=== PATIENT | female | born 1980 | race Caucasian/White ===

== ENCOUNTER 2016-09-14 21:40 | Inpatient (IN) | payer BC ==
[2016-09-14] MEDS ORDERED: Lidocaine 1% 30 ML SDV INJECT PRN (22:10)
[2016-09-14] MEDS ORDERED: Sodium Chloride 0.9% 10 ML Syringe FLUSH PRN (22:10)
[2016-09-14] MEDS ORDERED: Misoprostol 400 MCG (4 X 100 MCG TAB) RECTAL PRN (22:10)
[2016-09-14] MEDS ORDERED: Lactated Ringers 500 ML IV ONE (22:10)
[2016-09-14] MEDS ORDERED: Acetaminophen 325 MG Tab PO PRN (22:10)
[2016-09-14] MEDS ORDERED: Nalbuphine 10 MG/1 ML Vial IM PRN (22:10)
[2016-09-14] MEDS ORDERED: Methylergonovine 0.2 MG/1 ML Amp IM PRN (22:10)
[2016-09-14] MEDS ORDERED: Carboprost Tromethamine 250 MCG/1 ML Amp IM PRN (22:10)
[2016-09-14] MEDS ORDERED: Oxytocin/Normal Saline 30 UNIT/500 ML BAG IV SCH (22:15)
--- NOTE | 2016-09-14 22:18 | PCM.LDHP ---
<Nanda Avalos - Last Filed: 09/14/16 22:13> L&D History of Present Illness - General Date of Service: 09/14/16 Admit Problem/Dx: Patient Status Order with Admit Dx/Problem 09/14/16 22:11 Patient Status [ADT] Routine Admission Diagnosis/Problem Admission Diagnosis/Problem Source of Information: Patient History Limitations: Reports: No limitations - History of Present Illness Introduction:: Susana is a delightful 36 year old with a working gestation age of 38w 1d. She Presents today status post gross rupture of membranes at approximately 2130. She is having contractions approximately every 4 minutes. She is currently not really noticing the contractions. Timing/Duration: Reports: seconds: (6) Location, : Reports: Uterus Severity: mild Pain Score: 2 Associated Symptoms: Reports: vaginal fluid, moderate amount. Denies: vaginal bleeding, vaginal clots - Related Data Allergies/Adverse Reactions: Allergies Allergy/AdvReac Type Severity Reaction Status Date / Time No Known Allergies Allergy Verified 06/01/16 02:32 Home Medications: Home Meds Vit No.129/Iron/FA [ Tablet] 1 each PO DAILY 06/01/16 [History] Fluticasone Propionate [Flonase] 1 spray NASBOTH DAILY 09/01/16 [History] Loratadine [Claritin] 10 mg PO DAILY 09/01/16 [History] Past Medical History Other HEENT History: h/o cold sores COMMUNICATIONS CLERK History: Reports: Spontaneous (x2) : 3 Para: 0 LMP (Approximate): - Infectious Disease History Infectious Disease History: Reports: Chicken pox - Past Surgical History Neurological Surgical History: Reports: Spinal fusion Social & Family History - Family History HEENT: Reports: Glaucoma (mgf) Cardiac: Reports: UT (mgf), Other (see below) (heart disease, - MGF 5 vessel cabg - father) Neurological: Reports: CVA (father) Endocrine/Metabolic: Reports: Diabetes, type II (father) Oncologic: Reports: Breast (cousin), Lung (PGM) Other Family History: Cousin with down syndrome - Tobacco Use Smoking Status *Q: Never Smoker - Alcohol Use Alcohol Use History: No - Recreational Drug Use Recreational Drug Use: No - Living Situation & Occupation Living situation: Reports: Occupation: employed Social History Comment: 11/19/15 Moved form [place] in February of 2015. October 19 2015. 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 No animals in home. Shaquille has 2 children and he works at [employer] H&P Review of Systems - Review of Systems: Review Of Systems: See Below General: Denies: fever, chills HEENT: Reports: no symptoms Pulmonary: Denies: Shortness of Breath, Wheezing, Cough Cardiovascular: Reports: edema (mild). Denies: chest pain, palpitations Gastrointestinal: Denies: Abdominal pain, Nausea, Vomiting Genitourinary: Denies: dysuria, frequency Musculoskeletal: Reports: no symptoms Skin: Reports: no symptoms Psychiatric: Reports: no symptoms Neurological: Reports: No Symptoms Hematologic/Lymphatic: Reports: no symptoms Immunologic: Reports: no symptoms L&D Exam - Exam Exam: See Below - Vital Signs Weight: 97.976 kg - OB Specific Contraction Duration (sec): 6 Contraction Frequency (min): 4min Contraction Intensity: Mild movement: active heart tones: present - Exam General: alert, oriented, cooperative HEENT: Conjunctiva clear, Hearing intact, Pupils equal Neck: supple Lungs: Clear to auscultation, Normal respiratory effort Cardiovascular: regular rate, regular rhythm Abdomen: normal bowel sounds, soft Rectal Exam: Deferred Genitourinary: Normal external exam, Cervical dilitation (1.5) Back Exam: normal inspection, full range of motion Extremities: normal inspection, edema (trace) Skin: warm, dry, intact Psychiatric: alert, normal affect, normal mood - Problem List (1) SNOMED Code(s): 70216805 ICD Code: Z33.1 - STATE, INCIDENTAL Status: Acute Current Visit : Yes Qualifiers: Weeks of gestation: 38 weeks Qualified Code(s): Z3A.38 - 38 weeks gestation of (2) Spontaneous rupture of amniotic membranes SNOMED Code(s): 567432321 ICD Code: [id number] - Status: Acute Current Visit: Yes (3) Advanced maternal age (AMA) in SNOMED Code(s): 030063405 ICD Code: [id number] - Status: Acute Current Visit: Yes (4) Rubella immune SNOMED Code(s): 699826257 ICD Code: Z78.9 - OTHER SPECIFIED HEALTH STATUS Status: Acute Current Visit: Yes (5) Abnormal glucose tolerance in Status: Acute Current Visit: Yes (6) Previous SNOMED Code(s): 783021792 ICD Code: Z87.59 - PERSONAL HISTORY OF COMP OF PREG, CHLDBRTH AND THE PUERP Status: Acute Current Visit: Yes Problem List Initiated/Reviewed/Updated: Yes Orders Last 24hrs: Active Orders 24 hr Category Date Time Status Patient Status [ADT] Routine ADT 09/14/16 22:11 Ordered Communication Order [RC] ASDIRECTED Care 09/14/16 22:11 Ordered Heart Tones [RC] PER UNIT ROUTINE Care 09/14/16 22:11 Ordered Notify Provider Vital Signs OB [RC] ASDIRECTED Care 09/14/16 22:11 Ordered Notify Provider [RC] PRN Care 09/14/16 22:11 Ordered Pump Management, Intrathecal [RC] ASDIRECTED Care 09/14/16 22:12 Ordered Up ad Lisy [RC] ASDIRECTED Care 09/14/16 22:11 Ordered Vital Signs [RC] PER UNIT ROUTINE Care 09/14/16 22:11 Ordered CBC W/O DIFF,HEMOGRAM [HEME] Routine Lab 09/14/16 22:11 Ordered Acetaminophen [Tylenol] Med 09/14/16 22:10 Ordered 650 mg PO Q4H PRN Carboprost Tromethamine [Hemabate DS] Med 09/14/16 22:10 Ordered 250 mcg IM ASDIRECTED PRN Lactated Ringers @ 125 MLS/HR(1000ml) Med 09/14/16 22:15 Ordered Lactated Ringers [Ringers, Lactated] 1,000 ml IV ASDIRECTED Lactated Ringers [Ringers, Lactated] 500 ml Med 09/14/16 22:10 Ordered IV .BOLUS Lidocaine 1% [Xylocaine-MPF 1%] Med 09/14/16 22:10 Ordered 10 ml INJECT ASDIRECTED PRN Methylergonovine [Methergine] Med 09/14/16 22:10 Ordered 0.2 mg IM ASDIRECTED PRN Misoprostol [Cytotec] Med 09/14/16 22:10 Ordered 800 mcg RECTAL ASDIRECTED PRN Nalbuphine [Nubain] Med 09/14/16 22:10 Ordered 20 mg IM ONETIME PRN Ondansetron [Zofran] Med 09/14/16 22:10 Ordered 4 mg IV Q4H PRN Sodium Chloride 0.9% [Saline Flush] Med 09/14/16 22:10 Ordered 10 ml FLUSH ASDIRECTED PRN fentaNYL [Sublimaze] Med 09/14/16 22:10 Ordered 75 mcg IVPUSH Q1H PRN Saline Lock Insert [OM.PC] Routine Oth 09/14/16 22:11 Ordered Resuscitation Status Routine Resus Stat 09/14/16 22:10 Ordered Assessment/Plan Comment:: Assessment: at 38 and 1. O+ GBS - Rubella immune Syphilis and HIV negative HBsAg nonreactive Gonorrhea/chlamydia negative abnormal glucose tolerance test during - 1 hour screen 143. 3 hour screen 90, 148, 132, 107 Advanced maternal age H/o Previous abortions PLAN 1. Begin labor cares per unit protocol 2. Hemogram 3. Pain management as needed 4. continue to monitor contractions will start pit if not adequate. <Jenna Cruz - Last Filed: 09/15/16 04:10> L&D History of Present Illness - General Admit Problem/Dx: Patient Status Order with Admit Dx/Problem 09/14/16 22:11 Patient Status [ADT] Routine Admission Diagnosis/Problem Admission Diagnosis/Problem L&D Exam - Vital Signs Vital Signs: Last Vital Signs Temp 98.1 F 09/14/16 21:48 Pulse 79 09/14/16 22:30 Resp 16 09/14/16 22:30 BP 122/83 09/14/16 22:30 Pulse Ox - Patient Data Lab Results last 24 hrs: Laboratory Results - last 24 hr 09/14/16 Range/Units 22:25 WBC 8.3 (5.0-10.0) 10^3/uL RBC 4.14 L (4.2-5.4) 10^6/uL Hgb 12.4 (12.0-16.0) g/dL Hct 36.3 L (37.0-47.0) % MCV 87.7 (80-100) fL MCH 30.0 (27.0-34.0) pg MCHC 34.2 (33.0-35.0) g/dL Plt Count 198 (150-450) 10^3/uL Result Diagrams: 09/14/16 22:25 Orders Last 24hrs: Active Orders 24 hr Category Date Time Status Patient Status [ADT] Routine ADT 09/14/16 22:11 Active Communication Order [RC] ASDIRECTED Care 09/14/16 22:11 Active Heart Tones [RC] PER UNIT ROUTINE Care 09/14/16 22:11 Active Notify Provider Vital Signs OB [RC] ASDIRECTED Care 09/14/16 22:11 Active Notify Provider [RC] PRN Care 09/14/16 22:11 Active Pump Management, Intrathecal [RC] ASDIRECTED Care 09/14/16 22:12 Active Up ad Lisy [RC] ASDIRECTED Care 09/14/16 22:11 Active Vital Signs [RC] PER UNIT ROUTINE Care 09/14/16 22:11 Active Acetaminophen [Tylenol] Med 09/14/16 22:10 Active 650 mg PO Q4H PRN Carboprost Tromethamine [Hemabate DS] Med 09/14/16 22:10 Active 250 mcg IM ASDIRECTED PRN Lactated Ringers [Ringers, Lactated] 1,000 ml Med 09/14/16 22:15 Active IV ASDIRECTED Lidocaine 1% [Xylocaine-MPF 1%] Med 09/14/16 22:10 Active 10 ml INJECT ASDIRECTED PRN Methylergonovine [Methergine] Med 09/14/16 22:10 Active 0.2 mg IM ASDIRECTED PRN Misoprostol [Cytotec] Med 09/14/16 22:10 Active 800 mcg RECTAL ASDIRECTED PRN Nalbuphine [Nubain] Med 09/14/16 22:10 Active 20 mg IM ONETIME PRN Ondansetron [Zofran] Med 09/14/16 22:10 Active 4 mg IV Q4H PRN Oxytocin/Normal Saline [Pitocin in NS 30 UNIT/500 ML] Med 09/14/16 22:15 Active 30 unit in 500 ml IV TITRATE Sodium Chloride 0.9% [Saline Flush] Med 09/14/16 22:10 Active 10 ml FLUSH ASDIRECTED PRN fentaNYL [Sublimaze] Med 09/14/16 22:10 Active 75 mcg IVPUSH Q1H PRN Saline Lock Insert [OM.PC] Routine Oth 09/14/16 22:11 Ordered Resuscitation Status Routine Resus Stat 09/14/16 22:10 Ordered Medication Orders Acetaminophen (Tylenol) 650 mg PO Q4H PRN PRN Reason: Pain (Mild 1-3) and fever Carboprost Tromethamine (Hemabate Ds) 250 mcg IM ASDIRECTED PRN PRN Reason: HEMORRHAGE Fentanyl (Sublimaze) 75 mcg IVPUSH Q1H PRN PRN Reason: Pain (moderate 4-6) Lactated Ringer's (Ringers, Lactated) 1,000 mls @ 125 mls/hr IV ASDIRECTED MARIAN Oxytocin/Sodium Chloride (Pitocin In Ns 30 Unit/500 Ml) 30 unit in 500 mls @ 2 mls/hr IV TITRATE MARIAN; 2 MUNITS/MIN PRN Reason: Protocol Lidocaine HCl (Xylocaine-Mpf 1%) 10 ml INJECT ASDIRECTED PRN PRN Reason: Perineal Repair Methylergonovine Maleate (Methergine) 0.2 mg IM ASDIRECTED PRN PRN Reason: Hemorrhage Misoprostol (Cytotec) 800 mcg RECTAL ASDIRECTED PRN PRN Reason: Hemorrhage Nalbuphine HCl (Nubain) 20 mg IM ONETIME PRN PRN Reason: Abdominal Pain Ondansetron HCl (Zofran) 4 mg IV Q4H PRN PRN Reason: Nausea/Vomiting Sodium Chloride (Saline Flush) 10 ml FLUSH ASDIRECTED PRN PRN Reason: Keep Vein Open Assessment/Plan Comment:: Patient seen and examined. Agree with note per Nanda Avalos, MS3 scribed on my behalf. Also see [facility] clinic notes. -onsite case manager 09/15/16 0410.
[2016-09-14] MEDS: Lactated Ringers 1,000 ML IV SCH (23:55)
[2016-09-15] MEDS: Lactated Ringers 1,000 ML IV SCH ×6 (04:37→18:13)
--- NOTE | 2016-09-15 05:56 | PN ---
DATE: 09/15/2016 SUBJECTIVE: The patient is doing well, noticing increased force of her contractions and tolerating them well. Continues to have good movement. No vaginal bleeding. Continues to leak clear fluid. Reports anxiety and being nervous about if the baby is doing okay or not since the nurses needed to call me in for evaluation of the monitoring strip and they have already applied oxygen and decreased the rate of the Pitocin. OBJECTIVE: Vital Signs: Have been stable. She has had some borderline pressures, when I was called in was 136/80, with a pulse of 80, heart tones 130 beats per minute at baseline. Moderate [id number] variability. Accelerations are noted. Prior to my arrival, she was having recurrent early decelerations down into the 80s and 90s and nursing staff wanted me to evaluate because they were in early position with excellent variability and reassuring tracing in between, but due to the degree of heart rate decrease, they felt it was best that I reassess. Cervical: 3 cm, 75%, -1 station. Pitocin is currently at 4. As I was here, monitored her after vaginal exam. She continued to have contractions about every 2-1/2 minutes and the heart tracing reassuring in category I. After a period of time, she did have return of the early decelerations and some with more variable features. We have continued to watch over period time and they are frequently more variable than early. She has also had 1 late deceleration, which recovered spontaneously and these are not recurrent. ASSESSMENT: 1. A 38-2/7th weeks' intrauterine . 2. Premature rupture of membranes, being augmented with Pitocin. 3. Advanced maternal age. 4. History of miscarriage x2. 5. Other diagnoses as per her history and physical. PLAN: Continue to watch closely at this time. We will increase Pitocin as we are able and hopefully she will be able to get into a regular effective labor pattern, we can proceed with vaginal delivery. I did discuss with her and her reasons for proceeding with section as well as how the procedure would be performed and a full discussion with her about the risks, alternatives, and benefits and their questions were answered. Formal consent discussion will be documented in the operative report should we need to proceed to . [facility] /[id number]
[2016-09-15] MEDS: fentaNYL 100 MCG/2 ML SDV IVPUSH PRN ×2 (06:50→10:21)
[2016-09-15] MEDS: Ondansetron 4 MG/2 ML SDV IV PRN ×2 (12:39→17:56)
[2016-09-15] MEDS ORDERED: fentaNYL 100 MCG/2 ML SDV ITHECAL ONE ×2 (12:53→18:23)
--- NOTE | 2016-09-15 13:25 | PCM.PREANE ---
Preanesthetic Assessment - Procedure Proposed Procedure: Intrathecal Narcotic for labor pain - Anesthesia/Transfusion/Family Hx Anesthesia History: Prior Anesthesia Without Reaction Family History of Anesthesia Reaction: No Transfusion History: No Prior Transfusion(s) Intubation History: Unknown - Review of Systems General: No Symptoms Pulmonary: No Symptoms Cardiovascular: No Symptoms Gastrointestinal: No symptoms Neurological: No Symptoms Other: Reports: None - Physical Assessment NPO Status Date: 09/15/16 NPO Status Time: 08:00 Pulse: 67 O2 Sat by Pulse Oximetry: 100 Respiratory Rate: 16 Blood Pressure: 104/54 Temperature: 36.6 C Vital Signs: Last Vital Signs Temp 36.3 C 09/15/16 12:16 Pulse 69 09/15/16 10:54 Resp 16 09/15/16 10:38 BP 150/73 H 09/15/16 10:54 Pulse Ox 100 09/15/16 10:54 Height: 1.6 m Weight: 97.976 kg ASA Class: 2 Mental Status: Alert & Oriented x3 Airway Class: Mallampati = 2 Dentition: Reports: Normal Dentition ROM/Head Extension: Full Lungs: Clear to auscultation, Normal respiratory effort Cardiovascular: Regular Rate, Regular Rhythm - Lab Values: Laboratory Last Values WBC 8.3 10^3/uL (5.0-10.0) 09/14/16 22:25 RBC 4.14 10^6/uL (4.2-5.4) L 09/14/16 22:25 Hgb 12.4 g/dL (12.0-16.0) 09/14/16 22:25 Hct 36.3 % (37.0-47.0) L 09/14/16 22:25 MCV 87.7 fL (80-100) 09/14/16 22:25 MCH 30.0 pg (27.0-34.0) 09/14/16 22:25 MCHC 34.2 g/dL (33.0-35.0) 09/14/16 22:25 Plt Count 198 10^3/uL (150-450) 09/14/16 22:25 - Allergies Allergies/Adverse Reactions: Allergies Allergy/AdvReac Type Severity Reaction Status Date / Time No Known Allergies Allergy Verified 06/01/16 02:32 - Blood Product(s) Available: None - Anesthesia Plan Pre-Op Medication Ordered: None - Acknowledgements Anesthesia Type Planned: Spinal Pt an Appropriate Candidate for the Planned Anesthesia: Yes Alternatives and Risks of Anesthesia Discussed w Pt/Guardian: Yes Pt/Guardian Understands and Agrees with Anesthesia Plan: Yes PreAnesthesia Questionnaire Other HEENT History: h/o cold sores DEPOSIT REFUND CLERK History: Reports: Spontaneous (x2) Endocrine/Metabolic History: Reports: Other (see below) Other Endocrine/Metabolic History: watching for gestational DM- monitoring sugars - Infectious Disease History Infectious Disease History: Reports: Chicken pox - Past Surgical History Neurological Surgical History: Reports: Spinal fusion - SUBSTANCE USE Smoking Status *Q: Never Smoker Second Hand Smoke Exposure: No Recreational Drug Use History: No - HOME MEDS Home Medications: Home Meds Vit No.129/Iron/FA [ Tablet] 1 each PO DAILY 06/01/16 [History] Fluticasone Propionate [Flonase] 1 spray NASBOTH DAILY 09/01/16 [History] Loratadine [Claritin] 10 mg PO DAILY 09/01/16 [History] - CURRENT (IN HOUSE) MEDS Current Meds: Current Medications Acetaminophen (Tylenol) 650 mg PO Q4H PRN PRN Reason: Pain (Mild 1-3) and fever Carboprost Tromethamine (Hemabate Ds) 250 mcg IM ASDIRECTED PRN PRN Reason: HEMORRHAGE Fentanyl (Sublimaze) 75 mcg IVPUSH Q1H PRN PRN Reason: Pain (moderate 4-6) Last Admin: 09/15/16 10:21 Dose: 75 mcg Lactated Ringer's (Ringers, Lactated) 1,000 mls @ 125 mls/hr IV ASDIRECTED MARIAN Last Admin: 09/15/16 13:18 Dose: 125 mls/hr Oxytocin/Sodium Chloride (Pitocin In Ns 30 Unit/500 Ml) 30 unit in 500 mls @ 2 mls/hr IV TITRATE MARIAN; 2 MUNITS/MIN PRN Reason: Protocol Last Titration: 09/15/16 11:43 Dose: 7 munits/min, 7 mls/hr Lidocaine HCl (Xylocaine-Mpf 1%) 10 ml INJECT ASDIRECTED PRN PRN Reason: Perineal Repair Methylergonovine Maleate (Methergine) 0.2 mg IM ASDIRECTED PRN PRN Reason: Hemorrhage Misoprostol (Cytotec) 800 mcg RECTAL ASDIRECTED PRN PRN Reason: Hemorrhage Nalbuphine HCl (Nubain) 20 mg IM ONETIME PRN PRN Reason: Abdominal Pain Ondansetron HCl (Zofran) 4 mg IV Q4H PRN PRN Reason: Nausea/Vomiting Last Admin: 09/15/16 12:39 Dose: 4 mg Sodium Chloride (Saline Flush) 10 ml FLUSH ASDIRECTED PRN PRN Reason: Keep Vein Open Discontinued Medications Lactated Ringer's (Ringers, Lactated) 500 mls @ 999 mls/hr IV .BOLUS ONE Stop: 09/14/16 22:40
--- NOTE | 2016-09-15 13:27 | PCM.PRNOTE ---
- Free Text/Narrative Note: Chart Reviewed, Patient ID'd, Risk Benefit of spinal narcotic for labor pain is discussed and agreed to by patient. Consent signed. Preloaded with 1 liter of LR. Baseline VS is obtained. In sitting position L 3-4 inner space is id'd. Skin wheel and space infiltration with 1% lidocaine. 24 G pencan spinal needle is introduced into via 18 G introducer needle into SA space. No Paresthesia, No Blood, Positive CSF. 6 mg Hyperbaric Marcaine, 20 mcg sufentanyl, 30 mcg fentanyl, epinepherine wash and 1 ml preservative free normal saline injected after positive swirl of CSFx2. VSS Dermatone level is T8 Bilateral and immediate labor pain relieve reported by patient.
--- NOTE | 2016-09-15 18:12 | PCM.PRNOTE ---
- Free Text/Narrative Note: Patient is experiencing labor pain. The spinal effect is completely wore off and require a repeat spinal narcotic injection. The contractions are more frequent now. Consent signed. Preloaded with 1 liter of LR. Baseline VS is obtained. In sitting position L 3-4 inner space is id'd. Skin wheel and space infiltration with 1% lidocaine. 24 G pencan spinal needle is introduced into via 18 G introducer needle into SA space. No Paresthesia, No Blood, Positive CSF. 6 mg Hyperbaric Marcaine, 20 mcg sufentanyl, 30 mcg fentanyl, epinepherine wash and 1 ml preservative free normal saline injected after positive swirl of CSFx2. VSS Dermatone level is T8 Bilateral and immediate labor pain relieve reported by patient.
[2016-09-15] MEDS ORDERED: fentaNYL 100 MCG/2 ML SDV ONE (18:22)
[2016-09-15] MEDS ORDERED: Oxytocin/Normal Saline 60 UNIT/1,000 ML BAG ONE (19:56)
[2016-09-15] MEDS ORDERED: Citric Acid/Sodium Citrate Solution 30 ML Cup PO ONE ×2 (19:57→21:52)
[2016-09-15] MEDS ORDERED: ceFAZolin 2 GM in Premix Bag 1 BAG IV ONE ×2 (20:30→21:52)
[2016-09-15] MEDS ORDERED: Oxytocin/Normal Saline 30 UNIT/500 ML BAG IV SCH (21:00)
[2016-09-15] MEDS ORDERED: Ketorolac 30 MG/ML SDV IVPUSH ONE (21:00)
--- NOTE | 2016-09-15 22:20 | PN ---
DATE: 09/15/2016 SUBJECTIVE: The patient is comfortable now that she has had a second intrathecal, admits that she has increasing irritability and generalized fatigue from having been in labor so long and increasingly frustrated with the fact that she is not progressing quicker. She is also complaining of nausea especially any time that she lays flat at this time. She just feels ready to be done. OBJECTIVE: Vital Signs: Remained stable. Latest blood pressure 106/51, temperature of 69. Genitourinary: Cervix is 8 cm per nurse's exam. I was called in because when the Pitocin got up to 12 again, she had few lates, not recurrent in nature, but the strip looked more concerning. There were also a short periods of minimal variability. Upon arrival, baby had recovered quite nicely after stopping the Pitocin, and the patient being late on her left side. heart tones were tracing at 150 beats per minute at baseline with moderate beat-to- beat variability. Accelerations present. Contractions were starting to space out. I reexamined her cervix and it remains about 85% effaced and 7 cm dilated. Really no progress from last exam. Some increasing caput, but no other significant change, still continues to leak clear fluid. She remains afebrile and does not feel hot to touch. Psychologcal: She is essentially done and frustrated and just ready to deliver at this point. ASSESSMENT: 1. A 38 and 2/7th weeks' intrauterine . 2. Premature rupture of membranes, requiring induction of labor. 3. intolerance of labor. 4. Arrest of labor in stage I. 5. Heartburn. 6. Advanced maternal age. 7. History of abnormal glucose test at 1 hour, but normal 3 hour. 8. History of vertebral fracture with fusion of L5-S1. 9. She is blood type O positive, rubella immune, and group B strep negative. She is 3, para 0-0-2-0. PLAN: I discussed with the patient, her , and mother indications of section at this time. Previously had consent discussion with them knowing that the may become necessary. Reviewed risk of infection, bleeding, and injury to unintended organs and structures. Offered another opportunity for questions to be answered, and they denied having any and agreed to proceed. Appropriate consent forms were signed and can be found in the chart. We will proceed with section as soon as the team is ready and available. [facility] /[id number] [place]
[2016-09-15] MEDS ORDERED: diphenhydrAMINE 50 MG/ML SDV IVPUSH PRN (22:55)
[2016-09-15] MEDS ORDERED: Naloxone 2 MG/2 ML Syringe IVPUSH PRN (22:55)
[2016-09-15] MEDS ORDERED: Ondansetron 4 MG/2 ML SDV IV PRN (22:55)
[2016-09-15] MEDS ORDERED: ePHEDrine 50 MG/ML SDV IVPUSH PRN (22:55)
[2016-09-15] MEDS ORDERED: Lactated Ringers 1,000 ML IV SCH (23:00)
[2016-09-15] MEDS: Acetaminophen/oxyCODONE 325-5 MG Tab PO PRN (23:19)
[2016-09-16] MEDS: Ferrous Sulfate 325 MG Tab PO SCH ×2 (00:32→08:52)
--- NOTE | 2016-09-16 03:41 | OR ---
DATE: 09/15/2016 PREOPERATIVE DIAGNOSES: 1. A 38 and 2/7th weeks' intrauterine . 2. 3, para 0-0-2-0. 3. Premature rupture of membranes. 4. intolerance of labor. 5. Arrest of stage I at 7 cm dilated. 6. History of miscarriage x2. 7. Advanced maternal age. 8. Prior abnormal 1 hour glucose tolerance test and normal 3-hour test. 9. Heartburn of . 10.History of vertebral fracture with L5-S1 fusion. 11.Hemorrhoids. 12.Family history of heart attack. POSTPROCEDURE DIAGNOSES: 1. A 38 and 2/7th weeks intrauterine . 2. 3, para 0-0-2-0. 3. Premature rupture of membranes. 4. intolerance of labor. 5. Arrest of stage I at 7 cm dilated. 6. History of miscarriage x2. 7. Advanced maternal age. 8. Prior abnormal 1 hour glucose tolerance test and normal 3-hour test. 9. Heartburn of . 10.History of vertebral fracture with L5-S1 fusion. 11.Hemorrhoids. 12.Family history of heart attack. 13.Delivery of viable male infant with asynclitic molding noted likely the cause for arrest of stage I labor. PROCEDURE PERFORMED: Primary low transverse section. BRIEF HISTORY: The patient presented last night to the hospital after having spontaneous rupture of membranes about 9:30 at night and did not have rapid onset of contractions. Pitocin was ordered, but due to computer issues at the hospital, initiation of the Pitocin was delayed by about 4 hours. Off and on throughout the night and day, there has been intermittent category II and category I tracings, mostly remarkable for early decelerations, only occasional lates and lots of variables, not typically enough to call for section until right at the end. Please see progress notes and nursing notes for full details. The patient got no further than 7 cm dilated and about 85% effaced. Blood pressures had been maintained. She was not having any troubles with fever. The Pitocin was turned on and off a couple of different times because of mild intolerance. The patient had two intrathecals while in labor to help control her pain. After discussion of indications as outlined above, she did agree to proceed with surgery. CONSENT: Discussed with the patient, her , and mother, the indications risks, benefits, and alternatives of primary low transverse section including risk of infection and plan for preoperative antibiotics, risk of bleeding to the point of requiring a blood transfusion, as well as its inherent risk including possible contraction of blood-borne disease or new antibodies or transfusion reaction. Discussed potential injury to any internal organs and structures including, but not limited to, large blood vessels, nerves, veins, intestines, muscles, fallopian tubes, ovaries, uterus, bladder, any other adjacent structures, and even potential injury to the baby, possible complication for the mom or the baby requiring transfer to a tertiary center, remote risk of . Her questions were answered and she agreed to proceed. Appropriate consent forms were signed and are in the chart. DETAILS: The patient was brought down to the operating room and spinal anesthesia was obtained. She was laid in the dorsal supine position with leftward tilt, and Alatorre indwelling catheter was placed. Abdomen was prepped and draped in the usual fashion and skin incision was made in a Pfannenstiel location at 2051 hours and carried down to the underlying fascia with blunt finger dissection and limited cautery use. Fascia was then incised in the midline with cautery and extended bilaterally using blunt finger traction. Superior fascial edge was grasped with Bony's, tented up, and rectus muscles dissected off bluntly. Inferior fascial edge grasped, tented up, and rectus muscles dissected off bluntly and with cautery. The rectus muscles were noted to have a diastasis and the peritoneal cavity entered with blunt finger dissection. The intestine was readily protruding through the diastasis and Delmar O retractor was placed and then two lap sponges were used to hold the intestine out of the way. Uterus was inspected and bladder flap created using Metzenbaum scissors and DeBakey pickups. A low transverse uterine incision was made at 2056 hours and carried down sharply until just a thin layer was left. Ultimate uterine penetration was with finger and the hysterotomy site was created with Kaplan method. Infant's head was brought out of the pelvis and up through the hysterotomy site gently. With fundal pressure applied, infant's head was delivered followed easily thereafter by the shoulders. Baby's delivery time was 2057 hours. Infant's mouth and nose were bulb suctioned. Three-vessel umbilical cord was doubly clamped and cut and baby was taken to the warmer for further evaluation. Cord blood sample was then obtained and placenta delivered by manual extraction and gentle cord traction. Uterus was cleared of any clots and debris. The hysterotomy site bleeders were controlled with Jose and uterine closure was performed with a running lock stitch of 0 Vicryl in the usual fashion. Second layer was not necessary as the patient was hemostatic and declines plans for further pregnancies. Lap, sponges, and Delmar O retractor were removed. Pericolic gutters were cleared of any clots and debris. Hysterotomy site reinspected, remained hemostatic, and this layer was irrigated. The peritoneal layer was then closed with a running remnant stitch of 0 Vicryl with a fish being used to hold back the intestines. This layer was then irrigated, cleared of any clots and debris. The fascia closed with a running stitch of 0 looped PDS in the usual fashion. Subcutaneous layer was irrigated, cleared of clots and debris, and subcutaneous bleeders controlled with cautery. Skin was closed with a 3-0 Monocryl stitch on a Karlos needle and case ended at 2139 hours. The patient tolerated the procedure well. Sponge and instrument counts were correct x3. URINE OUTPUT: 100 mL, yellow. ESTIMATED BLOOD LOSS: 600 mL. IV FLUIDS: 1200 mL of crystalloids. FINDINGS: Viable male , scores of 9 and 9. weight 3615 g, 8 pounds 0 ounces, 20 inches long. Scalp remarkable for appearance of being asynclitic likely the cause for arrest of stage I. [facility] /[id number] [facility]
[2016-09-16] MEDS: Ketorolac 30 MG/ML SDV IVPUSH SCH ×3 (03:44→16:16)
[2016-09-16] MEDS: Acetaminophen/oxyCODONE 325-5 MG Tab PO PRN ×4 (05:46→21:02)
--- NOTE | 2016-09-16 07:13 | PCM.POSTAN ---
POST ANESTHESIA ASSESSMENT - MENTAL STATUS Mental Status: alert, oriented - VITAL SIGNS Pulse Rate: 88 SaO2: 99 Resp Rate: 20 Blood Pressure: 126/81 - RESPIRATORY Respiratory Status: respiratory rate WNL, airway patent, O2 saturation stable - CARDIOVASCULAR CV Status: pulse rate WNL, blood pressure stable - GASTROINTESTINAL GI Status: no symptoms - PAIN Pain Score: 0 - POST OP HYDRATION Hydration Status: adequate & stable - OBSERVATIONS Free Text/Narrative:: Fully recovered from spinal anesthesia sitting in bed had a good night. VSS.
[2016-09-16] MEDS: Prenatal Multivitamin with Calcium/Folic Acid/Iron Tab PO SCH (08:51)
[2016-09-16] MEDS: Simethicone 80 MG Tab.Chew PO PRN ×2 (08:52→21:03)
[2016-09-16] MEDS: Docusate Sodium 100 MG Cap PO PRN (08:52)
--- NOTE | 2016-09-16 09:29 | PN ---
DATE: 09/16/2016 SUBJECTIVE: The patient is lying in bed comfortably, attempting to breast-feed the baby, although he continues to fall asleep at the nipple. Mom is having no concerns at this time. Her pain is controlled. She has been able to pass gas. She was able to get some sleep over the night and feels much more rested today. She states she will continue to work on breast-feeding. Otherwise, she has no questions at this time. OBJECTIVE: Vital Signs: Temp 98.1, pulse 79, blood pressure 106/56, respirations 16, and O2 saturation is 99. Appearance: Female, lying in bed, in no acute distress. Attempting to breastfeed. HEENT: Head is atraumatic. No masses or deformities noted. No lymphadenopathy noted. Lungs: Clear to auscultation bilaterally. No increased effort of breathing. No adventitial lung sounds. Heart: S1 and S2 are normal. Regular rate and rhythm. No extra heart sounds noted. Abdomen: Soft, nontender, nondistended. No palpable masses noted. The dressing is dry, intact, and healing well. LABORATORY DATA: WBC is 11.3, RBC is 3.78, hemoglobin 11.3, hematocrit 34.0, MCV 89.9, MCH 29.9, MCHC 33.2, platelet count 167. ASSESSMENT: 1. A 38 week 2 day intrauterine . 2. Premature rupture of membranes requiring induction of labor. 3. intolerance of labor. 4. Arrest of labor in stage I. 5. Heartburn. 6. Advanced maternal age. 7. History of abnormal glucose test at 1-hour, but normal at 3-hour. 8. History of vertebral fracture with fusion of L5-S1. 9. She is blood type O positive, rubella immune, GBS negative. She is G3, P0- 0-2-0. 10. S/P Primary LTCS. PLAN: We will continue routine post operative care. Mom will continue to work on breast-feeding. We will look at removing catheter and getting patient up to shower today. [facility] /[id number] [facility] SYSTEM[facility]anshyam
[2016-09-16] MEDS: Ibuprofen 800 MG Tab PO PRN (23:59)
[2016-09-17] MEDS: Docusate Sodium 100 MG Cap PO PRN ×3 (00:02→21:02)
[2016-09-17] MEDS: Acetaminophen/oxyCODONE 325-5 MG Tab PO PRN ×5 (00:41→21:00)
[2016-09-17] MEDS: Simethicone 80 MG Tab.Chew PO PRN ×3 (05:29→21:00)
[2016-09-17] MEDS: Ibuprofen 800 MG Tab PO PRN ×2 (08:01→16:46)
[2016-09-17] MEDS: Prenatal Multivitamin with Calcium/Folic Acid/Iron Tab PO SCH (08:01)
[2016-09-17] MEDS: Ferrous Sulfate 325 MG Tab PO SCH (08:02)
[2016-09-17] MEDS ORDERED: Ondansetron 4 MG Tab.DIS PO PRN ×2 (12:09→14:29)
[2016-09-17] MEDS ORDERED: Metoclopramide 10 MG Tab PO PRN (14:30)
--- NOTE | 2016-09-17 19:12 | PN ---
DATE: 09/17/2016 SUBJECTIVE: The patient is lying in bed, sleeping, in no acute distress. Last night, baby had trouble breathing and O2 sats were dropping into the 70s, slightly increasing with oxygen; however, x-ray showed possible pneumothorax as well as possible developing pneumonia. Dr. Mo was consulted and the patient was transferred down to [place] for treatment. Mom was able to get some sleep this morning, however, still reports feeling tired. She has not had a bowel movement, she is able to pass gas. She had the Alatorre catheter removed yesterday, no concerns with bladder at this time. She is able to ambulate; however, she does note some pain and soreness at the incision site with movement. The patient was updated on baby's status early at 2:30 this morning, reassuring her that baby was doing well. The patient was counseled on the importance of taking care of herself so she can take care of baby when he is discharged, and she has decided to stay another day here at [facility] in [place]. No other concerns at this time. OBJECTIVE: Vital signs: Temp is 97.7, pulse is 95, blood pressure 124/74, respirations 16. Appearance: Female, lying in bed, in no acute distress. HEENT: Head is atraumatic. Eyes, ears, nose, and throat, without deformity or masses noted. Eyes, equal and responsive to light. Respirations: Lungs are clear to auscultation bilaterally. No increased effort of breathing. Heart: S1, S2 are normal. Regular rate and rhythm. No extra heart sounds noted. Abdomen: Soft, nontender, nondistended. No masses palpable. Removed tape and gauze, incision is dry and intact, healing well. Neurologic: Appears intact grossly. ASSESSMENT: 1. This is a 38 weeks 2 days' intrauterine . 2. Premature rupture of membranes, requiring induction of labor. 3. intolerance of labor. 4. Arrest of labor in stage I. 5. Heartburn. 6. Advanced maternal age. 7. Abnormal glucose test at 1-hour, but normal at 3-hour. 8. History of vertebral fracture with fusion of L5 to S1. 9. She is blood type O positive, rubella immune, group B Streptococcus negative. 10.She is 3, para 1-0-2-1. 11.Status post primary low transverse section day #2. PLAN: We will continue to monitor per routine postoperative care. Mom is continuing to pump. We will look at discharge tomorrow as the parents would like to go to [place] to be with their baby. [facility] /[id number] Patient seen and examined. Agree with written by Morgan Andujar, MS3 on my behalf. - [facility] 09/22/16 0519. MTDGhanshyam
[2016-09-17] MEDS ORDERED: Bisacodyl 10 MG Supp RECTAL ONE (21:04)
[2016-09-18] MEDS: Ibuprofen 800 MG Tab PO PRN ×2 (01:12→10:52)
[2016-09-18] MEDS: Acetaminophen/oxyCODONE 325-5 MG Tab PO PRN ×3 (01:12→10:53)
[2016-09-18] MEDS: Ferrous Sulfate 325 MG Tab PO SCH (09:10)
[2016-09-18] MEDS: Prenatal Multivitamin with Calcium/Folic Acid/Iron Tab PO SCH (09:10)
[2016-09-18] MEDS: Docusate Sodium 100 MG Cap PO PRN (10:53)
[2016-09-18] MEDS ORDERED: Ketorolac 30 MG/ML SDV IVPUSH ONE (11:29)
[2016-09-18] MEDS ORDERED: Promethazine 25 MG/ML SDV IV ONE (11:29)
[2016-09-18] MEDS ORDERED: Midazolam 1 MG/ML 2 ML SDV IV ONE (11:29)
[2016-09-18] MEDS ORDERED: Morphine PF 5 MG/10 ML SDV ONE (11:29)
[2016-09-18 12:01] VITALS: BP 125/89
--- NOTE | 2016-09-21 11:17 | DISCH ---
ADMISSION DIAGNOSES: 1. A 38-week 1-day intrauterine . 2. Premature rupture of membranes, requiring induction of labor. 3. Advanced maternal age. 4. History of abnormal glucose test at 1 hour, but normal at 3 hours. 5. History of vertebral fracture with fusion of L5-S1. 6. She is blood type O positive, rubella immune, group B streptococcus negative. She is a 3, para 0-0-2-0. DISCHARGE DIAGNOSES: 1. A 38-week 2-day intrauterine . 2. Premature rupture of membranes, requiring induction of labor. 3. intolerance of labor. 4. Arrest of labor in stage I. 5. Heartburn. 6. Advanced maternal age. 7. History of abnormal glucose test 1 hour, but normal at 3 hours. 8. History of vertebral fracture with fusion of L5-S1. 9. Blood type O positive, rubella immune, group B streptococcus negative. 3, para 1-0-2-1. 10.Status post primary low transverse section on day #3. DISCHARGE CONDITION: Stable. CONSULTATIONS: None. PROCEDURE: Low transverse section due to failure to progress/ intolerance of labor. HISTORY OF PRESENT ILLNESS: This is a G3, P 0-0-2-0, 36-year-old female, who presented with premature rupture of membranes at 38 weeks 1 days. Labor was induced; however, there was arrest of labor at stage I and intolerance of labor therefore, she was taken for a primary low transverse section. The baby had scores of 9 and 9, needed only routine care at that time. Mom and baby were both back on Labor and Delivery, doing fine, mom was attempting to breast feed. Baby began to have trouble breathing and poor O2 saturations, which increased slightly with oxygen administration, at 23 hours of age. Chest x-ray was ordered showing possible developing pneumonia with a pneumothorax. Dr. Mo in [place] was consulted, and baby was transferred to the NICU down in [place]. HOSPITAL COURSE: On admission, the patient had a WBC of 8.3, RBC of 4.14, hemoglobin 12.4, hematocrit 36.3. Two days later on 09/16/2016; her WBC was 11.3, RBCs were 3.78, hemoglobin 11.3, and hematocrit 34.0. Since surgery she has been doing well, some slight soreness over the incision, otherwise, she has no complaints at this time. She has had a bowel movement last night. No concerns for urination. No dizziness, headaches, lightheadedness. No visual changes. No pain in the lower legs. Ambulating, tolerating regular diet, and pain is controlled. Bleeding is minmal. PHYSICAL EXAMINATION AT DISCHARGE: Vital Signs: Temperature is 98.7, pulse 90, blood pressure 123/80, respirations 16. General: The patient is awake, alert, in no acute or apparent distress, lying in bed comfortably. HEENT: Head is normocephalic, atraumatic. No deformity is noted. Eyes, ears, nose, throat; no masses noted, no lymphadenopathy. Mucous membranes are moist. Respiratory: Lungs are clear to auscultation bilaterally. No increased effort of breathing. Heart: Regular rate and rhythm. S1 and S2 are normal. No murmurs appreciated. Abdomen: Bowel sounds are present. Soft, nontender, nondistended. Incision is dry, intact, and healing well. Extremities: Full range of motion grossly. Skin: No rashes noted. Neuro: No focal deficits noted. MEDICATIONS: 1. vitamin 1 PO daily 2. Ferrous sulfate 325mg PO BID 3. Ibuprofen 800mg PO TID PRN 4. Percocet 5/325mg 1-2 tab Q 4-6 hr PO PRN 5. Colace 100mg PO BID PRN DIET: Normal diet without restrictions. FOLLOWUP: Follow up with Dr. Mckinley in the [facility] next week for both mom and baby. DISCHARGE INSTRUCTIONS: The patient instructed to go to the ER or call Labor and Delivery if she is having any excessive bleeding, any pain at the incision site that is out of proportion, if she is having excessive drainage or bleeding from her incision site or any other signs and symptoms or worsening pain. [facility] /[id number] Patient seen and examined. Agree with written by ROBERTO Campos on my behalf. - [facility] 09/22/16 0526 MTDGhanshyam
== END 2016-09-18 11:30 | disposition home or self-care (01) | DRG 540 ==
LOC: DL.OBCHECK 21:40 → DL.OB 09-15 05:45 → MERGE 09-15 20:58 → OBSVTOIN 09-15 20:58
PROVIDERS: ADMIT Family Medicine; ATTEND Family Medicine
PROC: 10D00Z1 Extraction of Products of Conception, Low, Open Approach (ICD-10-PCS; principal; 2016-09-15)
PROC: 00HU33Z Insertion of Infusion Device into Spinal Canal, Percutaneous Approach (ICD-10-PCS; 2016-09-15)
PROC: 3E0R3CZ (ICD-10-PCS; 2016-09-15)
DX: O42.92 Full-term premature rupture of membranes, unspecified as to length of time between rupture and onset of labor (principal); O62.0 Primary inadequate contractions; Z3A.38 38 weeks gestation of pregnancy; Z37.0 Single live birth; O77.9 Labor and delivery complicated by fetal stress, unspecified; R12 Heartburn
CPT/HCPCS: 36415; 85027; 86850; 86900; 86901; A9270-GY; J0690; J1885; J2250; J2274; J2405; J2550; J2590; J3010; J7120